=== PATIENT | female | born 1955 | race Caucasian/White ===

== ENCOUNTER 2021-12-12 09:29 | Outpatient (CLI) | payer OTHER | END 2021-12-12 09:30 | disposition home or self-care (01) | LOC: DTY/OP 09:29 | PROVIDERS: ATTEND Internal Medicine | DX: E66.9 Obesity, unspecified (principal); R73.01 Impaired fasting glucose; I10 Essential (primary) hypertension; R73.03 Prediabetes; Z71.3 Dietary counseling and surveillance; Z68.31 Body mass index [BMI] 31.0-31.9, adult | CPT/HCPCS: 97802 ==